=== PATIENT | male | born 1975 | race African-American/Black ===

== ENCOUNTER → 2022-07-27 16:03 | Outpatient (CLI) | payer OTHER, SELFPAY ==
--- NOTE | ~2022-07-27 | CT_ITS ---
EXAMINATION: CT IAC/mastoids BI wo con DATE: 07/27/2022 16:28 INDICATION: Disorder of the right mastoid with lump behind right ear TECHNIQUE: Computed tomography (CT) of the temporal bones was performed without intravenous contrast. The dose-length product was 275.87 mGy-cm. COMPARISON: None FINDINGS: Underlying the marker indicating the lesion of concern located posterior to the ear and superficial t o the right mastoid is a subtle macroscopic fat attenuation subcutaneous nodule consistent with a lip ethan which measures approximately 4 cm craniocaudal length and up to 2.4 x 0.4 cm in maximal transaxia l dimensions. No other abnormal masses identified. Visualized portion of the brain are unremarkable. Visualized portion of the paranasal sinuses are clear. RIGHT TEMPORAL BONE: The internal auditory canal, cochlea, vestibule, semicircular canals, ossicles an oval window are nor mal. Scutum appears normal with no abnormal fluid in the middle ear cavity including at [employer]. The mastoid air cells are also clear. Carotid canal, jugular bulb and course of the facial nerve are unremarkable. LEFT TEMPORAL BONE: The internal auditory canal, cochlea, vestibule, semicircular canals, ossicles an oval window are nor mal. Scutum appears normal with no abnormal fluid in the middle ear cavity including at [employer]. The mastoid air cells are also clear. Carotid canal, jugular bulb and course of the facial nerve are unremarkable. IMPRESSION: 1. 4 x 2.4 x 0.4 cm macroscopic fat attenuation subcutaneous lipoma overlying the right mastoid at th e region of concern. Otherwise unremarkable study. Reviewed, dictated and finalized at location A. IMPRESSION: 1. 4 x 2.4 x 0.4 cm macroscopic fat attenuation subcutaneous lipoma overlying t he right mastoid at the region of concern. Otherwise unremarkable study.
== END ==
PROVIDERS: PCP Internal Medicine; Visit Provider Otolaryngology
DX: H74.91 Unspecified disorder of right middle ear and mastoid (principal); D17.39 Benign lipomatous neoplasm of skin and subcutaneous tissue of other sites
CPT/HCPCS: 70480

== ENCOUNTER → 2022-12-26 08:13 | Outpatient (CLI) | payer OTHER, SELFPAY ==
--- NOTE | ~2022-12-26 | XR_ITS ---
XR shoulder LT min 2V 12/26/2022 08:47 INDICATION: Disorder of the bone. PROCEDURE: 4 views left shoulder COMPARISON: No prior studies for comparison. FINDINGS: Fracture, dislocation or subluxation is not identified. There are mild degenerative changes of the acromioclavicular joint. The soft tissues appear within normal limits. No foreign bodies are identified. IMPRESSION: 1: NO ACUTE BONE OR JOINT ABNORMALITY IDENTIFIED. Reviewed, dictated and finalized at location L. 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
== END ==
PROVIDERS: PCP Internal Medicine; Visit Provider Internal Medicine
DX: M89.9 Disorder of bone, unspecified (principal)
CPT/HCPCS: 73030

== ENCOUNTER 2023-04-07 10:26 | Emergency (ER) | payer OTHER, SELFPAY ==
[2023-04-07 10:34] VITALS: BP 134/91; PULSE 80; RESP 16; TEMP 36.8; O2SAT 99
--- NOTE | 2023-04-07 11:49 | ED.GENADULT ---
HPI - General Adult General Chief complaint: Upper Respiratory Infection Stated complaint: Tongue problem Time Seen by Provider: 04/07/23 10:59 Source: patient and RN notes reviewed Mode of arrival: ambulatory Limitations: no limitations History of Present Illness HPI narrative: Patient presents today complaining of a yellow film on his tongue x1 week. Denies pain or itching. He has been gargling and swishing with peroxide without much relief. He was recently on a course of Keflex. He is a nonsmoker Related Data Home Medications Medication Instructions Recorded Confirmed levothyroxine 125 mcg tablet 125 mcg PO DAILY 04/07/23 04/07/23 Allergies Allergy/AdvReac Type Severity Reaction Status Date / Time Penicillins Allergy Mild Hives Verified 04/07/23 10:38 Review of Systems Review of Systems: CONSTITUTIONAL: Denies body aches, fever, chills, or sweats. EYES: Denies visual changes, redness, or discharge. ENT: Denies rhinorrhea, congestion, sore throat, or otalgia. +film on tongue CARDIOVASCULAR: Denies chest pain, palpitations, or edema. RESPIRATORY: Denies cough or dyspnea. GASTROINTESTINAL: Denies abdominal pain, nausea, vomiting, or diarrhea. GENITOURINARY: Denies dysuria or hematuria. SKIN: Denies rash, itching, or wounds. MUSCULOSKELETAL: Denies back pain, joint pain, or myalgia. NEUROLOGIC: Denies headache, numbness, tingling, or weakness. PSYCH: Denies depression or anxiety. PMFSH Comments At time of signature, I have reviewed and agree with nursing past medical, surgical, social and family history unless otherwise noted. Please see nursing chart for further information. There is no relevant family history pertinent to the presenting complaint Exam Narrative: GENERAL: Well-appearing, well-nourished, and in no acute distress. HEAD: Normocephalic, atraumatic. EYES: EOMI. No redness or drainage. Conjunctivae normal. ENT: Mucous membranes pink and moist. Throat mildly erythematous. Tonsils 3+. Uvula midline. Patient has a slight yellow film to the posterior tongue. No underlying erythema when scraped. No swelling of the tongue. Tongue papillae normal. No lesions to the oral mucosa. NECK: Normal AROM. CHEST: No respiratory distress. EXTREMITIES: Normal range of motion. No edema. SKIN: Warm, dry, no rash. Capillary refill normal. Normal skin turgor. NEURO: No focal deficits. Alert and oriented x3. Gait steady. PSYCH: Normal affect. No signs of depression or anxiety. Course Course Level of Care: Express Care Visit Vital Signs Vital signs: Vital Signs Temperature 98.2 F 04/07/23 10:34 Pulse Rate 80 04/07/23 10:34 Respiratory Rate 16 04/07/23 10:34 Blood Pressure 134/91 H 04/07/23 10:34 Pulse Oximetry 99 04/07/23 10:34 Temperature 98.2 F 04/07/23 10:34 Pulse Rate 80 04/07/23 10:34 Respiratory Rate 16 04/07/23 10:34 Blood Pressure 134/91 H 04/07/23 10:34 Pulse Oximetry 99 04/07/23 10:34 Reviewed Medical Decision Making MDM Narrative Medical decision making narrative: Rapid strep negative. Culture pending. Tongue appears normal, except for small amount of yellow discoloration on the posterior tongue. Will try some nystatin to see if this is helpful. Patient will follow-up with his PCP or ENT if symptoms do not improve. Anticipatory guidance given. Differential Diagnosis Differential Diagnosis: thrush, leukoplakia, strep throat, viral syndrome, lichen planus Vital Signs Vital Signs: Vital Signs Temperature 98.2 F 04/07/23 10:34 Pulse Rate 80 04/07/23 10:34 Respiratory Rate 16 04/07/23 10:34 Blood Pressure 134/91 H 04/07/23 10:34 Pulse Oximetry 99 04/07/23 10:34 Temperature 98.2 F 04/07/23 10:34 Pulse Rate 80 04/07/23 10:34 Respiratory Rate 16 04/07/23 10:34 Blood Pressure 134/91 H 04/07/23 10:34 Pulse Oximetry 99 04/07/23 10:34 Lab Data Lab results reviewed: Yes I reviewed the patient
== END 2023-04-07 11:09 | disposition home or self-care (01) ==
PROVIDERS: Emergency Provider Nurse Practitioner
DX: K14.9 Disease of tongue, unspecified (principal); E03.9 Hypothyroidism, unspecified
CPT/HCPCS: 87081; 87880; 99203; G0463

== ENCOUNTER 2024-03-25 08:45 | Emergency (ER) | payer OTHER, SELFPAY ==
--- NOTE | ~2024-03-25 | XR_ITS ---
EXAMINATION: XR finger 3rd RT min 2V DATE: 03/25/2024 09:07 INDICATION: Right hand third digit injury and swelling. TECHNIQUE: 4 views of right hand third digit were obtained. COMPARISON: None. FINDINGS: Alignment is normal. No fracture. Joint spaces are normal. IMPRESSION: 1. No fracture. Reviewed, dictated and finalized at location A. 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 No fracture.
[2024-03-25 08:52] VITALS: BP 134/81; PULSE 71; RESP 16; TEMP 37; O2SAT 98
--- NOTE | 2024-03-25 08:55 | ED.UPPEXIN ---
HPI - Extremity Injury (Upper) General Chief Complaint: Extremity Injury, Upper Stated Complaint: Right Hand Pain Source: patient and RN notes reviewed Mode of arrival: ambulatory Limitations: no limitations History of Present Illness HPI narrative: Patient is a 48-year-old male who presents to the [facility] with complaints of right 3rd finger pain and swelling for the past 3 days. Patient states that he noted the pain and swelling after he picked up a 230 lb box with the weight primarily being in his right hand. There is notable swelling and warmth to the right 3rd finger. He reports full of range of motion of the 3rd finger with discomfort due to swelling. Cap refill is normal. Patient is neurovascularly intact. Sensation intact. Related Data Home Medications ?Medication ?Instructions ?Recorded ?Confirmed ?Last Taken ?Type levothyroxine 125 mcg tablet 125 mcg PO DAILY 04/07/23 04/07/23 Unknown History Allergies Allergy/AdvReac Type Severity Reaction Status Date / Time Penicillins Allergy Mild Hives Verified 04/07/23 10:38 Review of Systems Review of Systems: CONSTITUTIONAL: Denies fever, chills, or sweats. EYES: Denies visual changes, redness, or discharge. ENT: Denies otalgia and sore throat CARDIOVASCULAR: Denies chest pain, palpitations, or edema. RESPIRATORY: Denies cough or dyspnea. GASTROINTESTINAL: Denies abdominal pain, nausea, vomiting, or diarrhea. GENITOURINARY: Denies dysuria or hematuria. SKIN: Denies rash or itching. MUSCULOSKELETAL: Denies back pain or myalgia. Reports right 3rd finger pain and swelling. NEUROLOGIC: Denies headache, numbness, or weakness. Pertinent positives per HPI. PMFSH Comments At the time of my signature, I reviewed and agree with the nursing past medical, surgical, social, and family history. There is no relevant family history pertinent to the patient complaint. Exam Narrative: GENERAL: This is a well-nourished, well-developed patient, in no apparent distress. HEAD: normocephalic, atraumatic. EYES: Sclera clear/white. Vision is grossly intact. EARS: External ears normal. Hearing grossly intact. NOSE: External nose normal with no obvious nasal discharge, nares without redness, no rhinorrhea. THROAT: Mucous membranes moist, posterior pharynx clear. NECK: Neck supple, non-tender without lymphadenopathy, masses or thyromegaly. CARDIOVASCULAR: Regular rate and rhythm without murmurs, gallops, or rubs. RESPIRATORY: Clear to auscultation. Breath sounds equal bilaterally. No wheezes, rales, or rhonchi. GASTROINTESTINAL: Abdomen soft, non-tender, nondistended. Bowel sounds are active. No hepato-splenomegaly, or palpable masses. No guarding. SKIN: warm, with no suspicious rash, good texture and turgor. Callus noted at the base of the right 3rd finger with surrounding erythema. NEURO: awake, alert, and oriented to person, place and time. There were no obvious focal neurologic abnormalities. EXTREMITIES: Right 3rd finger tenderness at the base of the proximal phalanx with slight warmth, erythema, and moderate swelling. Full range of motion present. Cap refill normal. Distal sensation and motor status intact. Course Course Level of Care: Express Care Visit Vital Signs Vital signs: Vital Signs Temperature 98.6 F 03/25/24 08:52 Pulse Rate 71 03/25/24 08:52 Respiratory Rate 16 03/25/24 08:52 Blood Pressure 134/81 03/25/24 08:52 Pulse Oximetry 98 03/25/24 08:52 Temperature 98.6 F 03/25/24 08:52 Pulse Rate 71 03/25/24 08:52 Respiratory Rate 16 03/25/24 08:52 Blood Pressure 134/81 03/25/24 08:52 Pulse Oximetry 98 03/25/24 08:52 Reviewed MDM - Extremity Injury (Upper) MDM Narrative Medical decision making narrative: Clean with soap and water only; Avoid using alcohol and peroxide. Elevate the affected area if possible Alternate Tylenol/ibuprofen for as needed for pain Acetaminophen(Tylenol) 650-1000mg every 4-6hours with max of 4000mg/day. Nonsteroidal anti-inflammatory agent (NSAIDs-ibuprofen): 400mg every 4-6hours with max 2400mg/day Take steroid and antibiotic until it's gone. Please schedule a follow up visit with your personal physician for further evaluation and treatment within 3-5days OR if your symptoms persist, change or worsen significantly before you can contact your personal physician then please, without delay, go to the emergency department for further evaluation. Patient presents with gout of the right hand- will treat with Prednisone. However, around the callus at the base of the right 3rd finger, there is localized erythema, concerning for developing infection. Will treat with Keflex. Differential Diagnosis Differential diagnosis: Likely dislocation of finger and other (finger fracture, gout, cellulitis) Imaging Data Attestation: I personally reviewed and interpreted this imaging study as follows: Radiologist's impression: [facility] [address] [place] [address] [place] [address] XRay Report Signed Patient: Jp Cornell : 1975 MR#: [id number] Age: 48 Acct:[id number] Loc: [facility] ADM Date: 03/25/24Attending Dr: Ordering Physician: Louann Viveros APRN Date of Service: 03/25/24 Procedure(s): XR finger 3rd RT min 2V Accession Number(s): [id number] cc: Louann Viveros APRN; Darius, Agapito DANIELSON (Kheng[place]ai)~ EXAMINATION: XR finger 3rd RT min 2V DATE: 03/25/2024 09:07 INDICATION: Right hand third digit injury and swelling. TECHNIQUE: 4 views of right hand third digit were obtained. COMPARISON: None. FINDINGS: Alignment is normal. No fracture. Joint spaces are normal. IMPRESSION: 1. No fracture. Reviewed, dictated and finalized at location A. 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 It is intended for [id number] communication. It is written in medical language and may contain unfamiliar abbreviations or verbiage. Medical documents are intended to carry relevant information, facts as evident, and the clinical opinion of the practitioner at the time of the encounter. This report may have been done utilizing a voice recognition system. Attempts have been made to correct errors. However, there may be uncorrected grammatical, spelling, and recognition errors present. The file time of this note does not necessarily represent the time of service. Dictated By: Rey Basurto MD 03/25/24 0914 Signed By: <Electronically signed by Rey Basurto MD in [place]> 03/25/24 0915 Critical Care Time Critical Care Time Critical Care Time: No Discharge Plan Discharge Clinical Impression: Acute gout of right hand Patient Disposition: Home, Self-Care Condition: Stable Instructions: Antibiotic Form, Wound Infection (ED), Gout (ED) Additional Instructions: Clean with soap and water only; Avoid using alcohol and peroxide. Elevate the affected area if possible Alternate Tylenol/ibuprofen for as needed for pain Acetaminophen(Tylenol) 650-1000mg every 4-6hours with max of 4000mg/day. Nonsteroidal anti-inflammatory agent (NSAIDs-ibuprofen): 400mg every 4-6hours with max 2400mg/day Take steroid and antibiotic until it's gone. Please schedule a follow up visit with your personal physician for further evaluation and treatment within 3-5days OR if your symptoms persist, change or worsen significantly before you can contact your personal physician then please, without delay, go to the emergency department for further evaluation. Patient Language: Maltese Prescriptions: New prednisone 50 mg tablet 50 mg PO DAILY 5 Days Qty: 5 0RF cephalexin 500 mg capsule 500 mg PO Q12H 10 Days Qty: 20 0RF No Action levothyroxine 125 mcg tablet 125 mcg PO DAILY nystatin 100,000 unit/mL suspension 5 ml PO QID 7 Days Qty: 140 0RF Rx Instructions: swish and swallow Follow-up/Referrals: Darius,MD Altman (Kheng[place]ai) [Primary Care Provider] - Time of Disposition: 09:24
== END 2024-03-25 09:25 | disposition home or self-care (01) ==
PROVIDERS: Emergency Provider Nurse Practitioner; PCP Internal Medicine
DX: M10.9 Gout, unspecified (principal)
CPT/HCPCS: 73140; 99213; G0463

== ENCOUNTER 2024-05-24 08:01 | Emergency (ER) | payer OTHER, SELFPAY ==
--- NOTE | ~2024-05-24 | XR_ITS ---
EXAMINATION: XR finger 5th LT min 2V DATE: 05/24/2024 09:00 INDICATION: Postreduction left fifth proximal interphalangeal joint dislocation. TECHNIQUE: Dorsal palmar, lateral and 2 oblique views of the left fifth digit were obtained COMPARISON: 05/24/2024 at 8:19 AM FINDINGS: Successful reduction to normal alignment of the previously described fifth proximal interphalangeal j oint. There is 1 mm distraction of a tiny volar plate avulsion fracture fragment with donor site rodger g the volar rim of the base of the middle phalanx. No other fractures identified. Profiled joint spac es are normal. IMPRESSION: 1. Successful reduction of the previously dislocated left fifth proximal interphalangeal joint. 2. Minimal distraction of a tiny volar plate avulsion fracture along the volar base of the middle pha lanx. Reviewed, dictated and finalized at location A. IMPRESSION: 1. Successful reduction of the previously dislocated left fifth proximal interp halangeal joint. 2. Minimal distraction of a tiny volar plate avulsion fracture along the volar base of the middle phalanx.
--- NOTE | ~2024-05-24 | XR_ITS ---
EXAMINATION: XR finger 5th LT min 2V DATE: 05/24/2024 08:15 INDICATION: Left fifth finger deformity TECHNIQUE: Dorsal palmar, lateral and 2 oblique views of the left fifth digit were obtained COMPARISON: None FINDINGS: Dorsal dislocation of the left fifth proximal interphalangeal joint with 5 mm proximal migration. No fractures identified. Alignment is normal throughout the remainder the visualized left hand. Mild ost eoarthritis at the first metacarpophalangeal joint. Remaining profiled joint spaces appear normal. IMPRESSION: 1. Dorsal dislocation and 5 mm proximal migration of the left fifth proximal interphalangeal joint. Reviewed, dictated and finalized at location A. IMPRESSION: 1. Dorsal dislocation and 5 mm proximal migration of the left fifth proximal in terphalangeal joint.
[2024-05-24 08:09] VITALS: BP 99/60; PULSE 80; RESP 16; TEMP 36; O2SAT 99
--- NOTE | 2024-05-24 08:23 | ED_ITS ---
HPI - Extremity Injury (Upper) General Chief Complaint: Extremity Injury, Upper Stated Complaint: INJURED FINGER Time Seen by Provider: 05/24/24 08:17 Source: patient and RN notes reviewed Mode of arrival: ambulatory Limitations: no limitations History of Present Illness HPI narrative: Patient presents today complaining of possible dislocation of his left 5th finger. He was outside exercising today when he fell injuring his finger approximately 20 minutes prior to arrival. Denies numbness or tingling. No [id number] treatment prior to arrival. Rates his pain 11/14 Related Data Home Medications ?Medication ?Instructions ?Recorded ?Confirmed ?Last Taken ?Type levothyroxine 125 mcg tablet 125 mcg PO DAILY 04/07/23 05/24/24 Unknown History Allergies Allergy/AdvReac Type Severity Reaction Status Date / Time Penicillins Allergy Mild Hives Verified 05/24/24 08:22 Review of Systems Review of Systems: CONSTITUTIONAL: Denies body aches, fever, chills, or sweats. EYES: Denies visual changes, redness, or discharge. ENT: Denies rhinorrhea, congestion, sore throat, or otalgia. CARDIOVASCULAR: Denies chest pain, palpitations, or edema. RESPIRATORY: Denies cough or dyspnea. GASTROINTESTINAL: Denies abdominal pain, nausea, vomiting, or diarrhea. GENITOURINARY: Denies dysuria or hematuria. SKIN: Denies rash, itching, or wounds. MUSCULOSKELETAL: Denies back pain, or myalgia.+ left 5th finger injury NEUROLOGIC: Denies headache, numbness, tingling, or weakness. PSYCH: Denies depression or anxiety. PMFSH Comments At time of signature, I have reviewed and agree with nursing past medical, surgical, social and family history unless otherwise noted. Please see nursing chart for further information. There is no relevant family history pertinent to the presenting complaint Exam Narrative: GENERAL: Well-appearing, well-nourished, and in no acute distress. HEAD: Normocephalic, atraumatic. EYES: EOMI. No redness or drainage. Conjunctivae normal. ENT: Mucous membranes pink and moist. NECK: Normal AROM. CHEST: No respiratory distress. EXTREMITIES: Deformity at the left 5th PIP. Distal sensation intact. Capillary refill. Decreased range of motion due to deformity. SKIN: Warm, no rash. Capillary refill normal. Normal skin turgor. Diaphoretic. NEURO: No focal deficits. Alert and oriented x3. Gait steady. PSYCH: Normal affect. No signs of depression or anxiety. Course Course Emergency Course: After reduction of the finger, patient placed on exam table supine with cold cloth to rest, as he states he feels faint. Post reduction film ordered. Level of Care: Express Care Visit Vital Signs Vital signs: Vital Signs Temperature 96.8 F L 05/24/24 08:09 Pulse Rate 80 05/24/24 08:09 Respiratory Rate 16 05/24/24 08:09 Blood Pressure 99/60 L 05/24/24 08:09 Pulse Oximetry 99 05/24/24 08:09 Oxygen Delivery Room Air 05/24/24 08:09 Temperature 96.8 F L 05/24/24 08:09 Pulse Rate 80 05/24/24 08:09 Respiratory Rate 16 05/24/24 08:09 Blood Pressure 99/60 L 05/24/24 08:09 Pulse Oximetry 99 05/24/24 08:09 Oxygen Delivery Room Air 05/24/24 08:09 Reviewed Procedures Orthopedic Joint Reduction Joint #1: Orthopedic Joint Reduction Date: 05/24/24 Orthopedic Joint Reduction Time: 08:24 Side: left Joint Reduction Location: finger Analgesia: none Pre-Procedure Neuro Vascular Exam: normal Local Anesthesia: none Technique used: traction/counter-traction Post-reduction neuro exam: intact and no change Post-reduction vascular: intact and no change Post Reduction X-Ray Obtained: Yes Orthopedic Splinting/Casting Injury #1: Splinting/Casting Date: 05/24/24 Splinting/Casting Time: 09:48 Side: left Upper Extremity Injury Location: finger Upper Extremity Immobilizer: finger (other) (dorsal metal splint at 30 degree flexion) Pre-Procedure Neuro Vascular Exam: normal Post-Procedure Neuro Vascular Exam: normal Additional Comments: Up to date recommends dorsal metal finger splint at 30 degree flexion for PIP dorsal dislocations. Placed by tech. [facility] - Extremity Injury (Upper) [facility] Narrative Medical decision making narrative: First x-ray shows dorsal dislocation of PIP. Reduction successful using traction-countertraction. Second x-ray shows successful reduction with tiny avulsion fracture. Patient splinted. He declines prescription for pain medication. Recommend follow-up with orthopedics or hand specialist to ensure healing. Anticipatory guidance given Differential Diagnosis Differential diagnosis: Likely other (Finger fracture, dislocation, sprain) Imaging Data Radiologist's impression: ITS Impressions Finger X-Ray 05/24/24 08:27 IMPRESSION: 1. Dorsal dislocation and 5 mm proximal migration of the left fifth proximal interphalangeal joint. Finger X-Ray 05/24/24 09:25 IMPRESSION: 1. Successful reduction of the previously dislocated left fifth proximal interphalangeal joint. 2. Minimal distraction of a tiny volar plate avulsion fracture along the volar base of the middle phalanx. Critical Care Time Critical Care Time Critical Care Time: No Discharge Plan Discharge Clinical Impression: Dislocation of finger PIP joint Qualifiers: Encounter type: initial encounter Qualified Code(s): S63.289A - Dislocation of proximal interphalangeal joint of unspecified finger, initial encounter Patient Disposition: Home Condition: Stable Instructions: Finger Dislocation (ED) Additional Instructions: Your finger dislocation has been reduced and you have been placed in a finger splint. It is recommended that you follow-up with orthopedics or a hand specialist for further evaluation. Elevate and ice the finger. Taking anti- inflammatories such as Aleve or ibuprofen for pain and inflammation. Patient Language: Georgian Prescriptions: No Action levothyroxine 125 mcg tablet 125 mcg PO DAILY Follow-up/Referrals: Raya Mclcain MD [Physician] - [facility],MD Altman (Khengwai) [Primary Care Provider] - Time of Disposition: 09:29
== END 2024-05-24 09:35 | disposition home or self-care (01) ==
PROVIDERS: Emergency Provider Nurse Practitioner; PCP Internal Medicine
DX: S63.287A Dislocation of proximal interphalangeal joint of left little finger, initial encounter (principal); W19.XXXA Unspecified fall, initial encounter; E03.9 Hypothyroidism, unspecified
CPT/HCPCS: 26770; 73140; 99214; G0463